=== PATIENT | female | born 1995 | race Two or more races ===

== ENCOUNTER 2018-09-02 07:19 | Outpatient (CLI) | payer OTHER | END 2018-09-02 07:24 | disposition home or self-care (01) | LOC: SONOGRAMA 07:19 | DX: E04.1 Nontoxic single thyroid nodule (principal) ==

== ENCOUNTER 2025-04-15 11:03 | Emergency (ER) | payer OTHER ==
[~2025-04-15] VITALS: Ht 157.5 cm; Wt 96.2 kg
[2025-04-15] MEDS ORDERED: SYNTHROID200 MCG PO (12:15)
[2025-04-15] MEDS ORDERED: LEVOTHYROXINE25 MCG PO (12:15)
[2025-04-15] MEDS ORDERED: METFORMIN HCL500 M3 PO (12:16)
[2025-04-15] MEDS ORDERED: ALBUTEROL SULFATE 3 ML/2.5 MG AMPUL.NEB IH SCH (12:45)
[2025-04-15] MEDS ORDERED: RINGERS SOLUTION,LACTATED 1,000 ML IV ONE (12:45)
[2025-04-15] MEDS ORDERED: LEVALBUTEROL HCL 1.25 MG/3 ML SOLUTION IH SCH (13:30)
[2025-04-15 13:52] LABS: BASO % 0.3 % (0.1-1.2); EOS # 0.06 (0.04-0.54); EOS % 1.0 % (0.7-7.0); LYMPH # 1.09 (1.18-3.74); LYMPH % 18.2 % (19.3-53.1); MEAN PLATELET VOLUME 10.50 fl (9.4-12.4); MONO # 0.80 (0.24-0.82); NEUT # 3.94 (1.56-6.13); NEUT % 65.8 % (34.0-71.1); RED CELL DISTRIBUTION WIDTH 12.8 % (11.6-14.4)
[2025-04-15 13:53] LABS: MONO % 13.4 % (4.7-12.5)
[2025-04-15 14:29] LABS: BUN CREA RATIO 14.0 (7.0-25.0); CREATININE SERUM 0.35 mg/dL (0.55-1.02); GFR 220.15; GLUCOSE FASTING 89.0 mg/dL (65-100); OSMOLALITY SERUM 271.0 MOSM/KG (275-295)
[2025-04-15 15:26] LABS: COVID-19 AG NEGATIVE (NEGATIVE)
[2025-04-15] MEDS ORDERED: XOPENEX CO1.25 MG/0. IH (15:57)
== END 2025-04-15 16:11 | disposition home or self-care (01) ==
LOC: ER 11:03
PROVIDERS: Emergency Medicine
DX: O26.892 Other specified pregnancy related conditions, second trimester (principal); Z3A.28 28 weeks gestation of pregnancy; J20.9 Acute bronchitis, unspecified; E03.8 Other specified hypothyroidism; R07.89 Other chest pain; J06.9 Acute upper respiratory infection, unspecified; R05.8 Other specified cough; Z20.822 Contact with and (suspected) exposure to COVID-19